=== PATIENT | male | born 1955 | race Caucasian/White ===

== ENCOUNTER 2023-03-14 19:30 | Inpatient (IN) | payer MEDICARE, MEDICAID ==
[2023-03-14] VITALS (9 sets, daily range): BP systolic 123–141; BP diastolic 65–82; PULSE 83–92; RESP 17–26; TEMP 98.3; O2SAT 82–93
[~2023-03-14] VITALS: Ht 182.9 cm; Wt 76.4 kg
[~2023-03-14 19:30] MED LIST: ASPI-10 PO; MULT-342 PO; NITR0.4T51 SL; [UNRECOGNIZED DRUG - OTHER]; aspirin 81mg tab.chew ONE; heparin 10,000 units/1 ML INJ ONE
[2023-03-14] MEDS ORDERED: aspirin 81mg tab.chew PO STA (19:51)
[2023-03-14 19:53] LABS: BASOPHILS % (AUTO) 0.3 % (0-1); EOSINOPHILS % (AUTO) 0 % (0-6); HEMATOCRIT 43.8 % (42.0-52.0); HEMOGLOBIN 14.9 g/dl (14.0-17.9); LYMPHOCYTES # (AUTO) 3.4 X10'3 (1.1-4.8); LYMPHOCYTES % (AUTO) 43.7 % (21-51); MEAN CORPUSCULAR HEMOGLOBIN 32.5 PG (27.0-31.0); MEAN CORPUSCULAR HGB CONC 33.9 g/dL (33.0-36.5); MEAN CORPUSCULAR VOLUME 95.8 FL (78-98); MEAN PLATELET VOLUME 8.5 FL (7.4-10.4); MONOCYTES # (AUTO) 0.8 X10'3 (0-0.9); MONOCYTES % (AUTO) 10.4 % (2-12); NEUTROPHILS # (AUTO) 3.6 X10'3 (1.8-7.7); NEUTROPHILS % (AUTO) 45.6 % (42-75); PLATELET COUNT 217 X10'3 (140-440); RED BLOOD COUNT 4.57 X10'6 (4.70-6.10); RED CELL DISTRIBUTION WIDTH 13.7 % (11.5-14.5); WHITE BLOOD COUNT 7.9 X10'3 (4.5-11.0)
[2023-03-14] MEDS ORDERED: ondansetron/PF 4mg/2ml inj IV STA (19:54)
[2023-03-14] MEDS ORDERED: FLO0.4C PO (19:54)
[2023-03-14] MEDS ORDERED: [UNRECOGNIZED DRUG - CODE] PO (19:54)
[2023-03-14] MEDS ORDERED: heparin, porcine 5000 units/ml vial IV STA (19:54)
[2023-03-14] MEDS ORDERED: ALBU6.7H14 INH (19:54)
[2023-03-14] MEDS ORDERED: morphine 4 MG/ML inj SYRINge IV STA (19:54)
[2023-03-14] MEDS ORDERED: aspirin 81mg tab.chew PO ONE (19:55)
[2023-03-14] MEDS ORDERED: fentaNYL/PF 50MCG/1 ML 2ML syringe ONE (20:07)
[2023-03-14] MEDS ORDERED: LIDOcaine 1% 30ml preserv. free vial ONE (20:07)
[2023-03-14] MEDS ORDERED: iohexol 350MG/ML 100ml bottle IV ONE ×2 (20:07→20:14)
[2023-03-14] MEDS ORDERED: iohexol 350 MG/ML 50ML vial IV ONE (20:07)
[2023-03-14] MEDS ORDERED: midazolam 1 mg/ML 2ml injection ONE (20:07)
--- NOTE | 2023-03-14 20:14 | NUR ---
pt to medical laboratory technician.
[2023-03-14] MEDS ORDERED: heparin 1,000unit/ml 10ml vial 10 ML ONE (20:20)
[2023-03-14] MEDS ORDERED: nitroGLYCERIN-Tridil 50MG/D5W 250 ML IV ONE (20:20)
[2023-03-14] MEDS ORDERED: verapamil 2.5 mg/ml inj IV ONE (20:20)
[2023-03-14 20:26] LABS: ALANINE AMINOTRANSFERASE 23 U/L (12-78); ALBUMIN 3.9 G/DL (3.4-5.0); ALBUMIN/GLOBULIN RATIO 1.1 (1.1-1.5); ALKALINE PHOSPHATASE 55 IU/L (46-116); ANION GAP 10 (8-16); ASPARTATE AMINO TRANSFERASE 13 U/L (10-37); BILIRUBIN,TOTAL 0.9 MG/DL (0.1-1.0); BLOOD UREA NITROGEN 35 MG/DL (7-18); BUN/CREATININE RATIO 35.4 (10.0-20.0); CALCIUM 9.4 MG/DL (8.5-10.1); CHLORIDE 106 MMOL/L (99-107); CREATININE 0.99 MG/DL (0.60-1.10); GLUCOSE 79 MG/DL (70-104); POTASSIUM 3.6 MMOL/L (3.5-5.1); SODIUM 143 MMOL/L (135-145); TOTAL CARBON DIOXIDE 27.4 MMOL/L (24-32); TOTAL PROTEIN 7.5 G/DL (6.4-8.2); eCRCL 77 ML/MIN; eGFR 75 ML/MIN
[2023-03-14 20:33] LABS: PRO BRAIN NATRIURETIC PEPTIDE 206 PG/ML (0-125)
[2023-03-14] MEDS ORDERED: ondansetron/PF 4mg/2ml inj ONE (20:44)
[2023-03-14] MEDS ORDERED: ondansetron/PF 4mg/2ml inj IV PRN (21:25)
[2023-03-14] MEDS ORDERED: nitroGLYCERIN 0.4mg SUBLingual tab SL PRN (21:25)
[2023-03-14] MEDS ORDERED: HYDROcodone/acetaminophen 10/325mg tab PO PRN (21:25)
[2023-03-14] MEDS ORDERED: HYDROcodone/acetaminophen 5mg/325mg tablet PO PRN (21:25)
[2023-03-14] MEDS ORDERED: NITR0.4T51 SL (21:46)
[2023-03-14 22:34] LABS: ABG BASE EXCESS -1.7 mmol/L (-2.0-2.0); ABG HCO3 23.5 mmol/L (22.0-26.0); ABG OXYGEN SATURATION 84.3 % (94-97); ABG PCO2 (T) 41.3 mmHg (35.0-48.0); ABG PH (T) 7.372 (7.340-7.440); ABG PO2 (T) 50.8 mmHg (75.0-100.0); FCOHb 0.4 % (0.0-3.9); FHHb 15.6 % (0.0-5.0); FLOW 15 L/min; FMetHb 0.2 % (0.0-1.5); FO2Hb 83.8 % (94-97); MODE MASK - SIMPLE; PATIENT TEMPERATURE 36.8; TOTAL HEMOGLOBIN 15.9 G/dl (14.0-17.9)
[2023-03-14] MEDS ORDERED: ipratropium/albuterol 3ml nebule NEB PRN (22:55)
[2023-03-15] VITALS (7 sets, daily range): BP systolic 127–145; BP diastolic 88–96; PULSE 71–89; RESP 17–19; TEMP 97.5; O2SAT 88–99
--- NOTE | 2023-03-15 01:00 | NUR ---
S/p cardiac cath through R/radial wrist, hemostatic wrist band removed per protocol with no adverse events, dressing applied to puncture site and will continue to monitor.
[2023-03-15 06:39] LABS: BASOPHILS % (AUTO) 0.1 % (0-1); EOSINOPHILS % (AUTO) 0 % (0-6); HEMATOCRIT 46.1 % (42.0-52.0); HEMOGLOBIN 15.6 g/dl (14.0-17.9); LYMPHOCYTES # (AUTO) 0.7 X10'3 (1.1-4.8); LYMPHOCYTES % (AUTO) 8.1 % (21-51); MEAN CORPUSCULAR HEMOGLOBIN 32.4 PG (27.0-31.0); MEAN CORPUSCULAR HGB CONC 33.7 g/dL (33.0-36.5); MONOCYTES # (AUTO) 0.4 X10'3 (0-0.9); MONOCYTES % (AUTO) 4.8 % (2-12); NEUTROPHILS # (AUTO) 7.2 X10'3 (1.8-7.7); PLATELET COUNT 221 X10'3 (140-440); RED BLOOD COUNT 4.81 X10'6 (4.70-6.10); RED CELL DISTRIBUTION WIDTH 13.7 % (11.5-14.5); WHITE BLOOD COUNT 8.2 X10'3 (4.5-11.0)
[2023-03-15 07:09] LABS: ALANINE AMINOTRANSFERASE 22 U/L (12-78); ALBUMIN 3.8 G/DL (3.4-5.0); ALBUMIN/GLOBULIN RATIO 1.1 (1.1-1.5); ALKALINE PHOSPHATASE 55 IU/L (46-116); ANION GAP 9 (8-16); ASPARTATE AMINO TRANSFERASE 49 U/L (10-37); BILIRUBIN,TOTAL 1.6 MG/DL (0.1-1.0); BLOOD UREA NITROGEN 32 MG/DL (7-18); BUN/CREATININE RATIO 41.6 (10.0-20.0); CALCIUM 9.2 MG/DL (8.5-10.1); CHLORIDE 106 MMOL/L (99-107); CREATININE 0.77 MG/DL (0.60-1.10); GLUCOSE 125 MG/DL (70-104); POTASSIUM 4.1 MMOL/L (3.5-5.1); SODIUM 139 MMOL/L (135-145); TOTAL PROTEIN 7.3 G/DL (6.4-8.2); eCRCL 99 ML/MIN; eGFR > 90 ML/MIN
--- NOTE | 2023-03-15 07:09 | NUR ---
Lab called to say Trop value was . This however was part of a series and was post cardiac cath. charge nurse angel aware. will continue to monitor patient
[2023-03-15 11:26] LABS: CHOL/HDL RATIO 2.5 (0.00-4.99); CHOLESTEROL 161 MG/DL (0-200); HDL CHOLESTEROL 65 MG/DL (35-60); LDL CHOLESTEROL 87 MG/DL (50-100); TRIGLYCERIDES 36 MG/DL (20-135)
[2023-03-15] MEDS ORDERED: ASPI-1265 PO (12:20)
--- NOTE | 2023-03-15 16:27 | NUR ---
patient seen by [facility], following ambulation no SOB or cardiac symptoms. see note. patient reports no pain this am. Is for discharge. All DC instructions given to patient and . patient DC home via private car with in stable condition
== END 2023-03-15 14:09 | disposition home or self-care (01) | DRG 280 ==
LOC: ER 19:31 → PCU 3S 21:02
PROVIDERS: ADMIT Internal Medicine Interventional Cardiology; ATTEND Internal Medicine Interventional Cardiology
PROC: 4A023N7 Measurement of Cardiac Sampling and Pressure, Left Heart, Percutaneous Approach (ICD-10-PCS; principal; 2023-03-14)
PROC: B2111ZZ Fluoroscopy of Multiple Coronary Arteries using Low Osmolar Contrast (ICD-10-PCS; 2023-03-14)
PROC: B2151ZZ Fluoroscopy of Left Heart using Low Osmolar Contrast (ICD-10-PCS; 2023-03-14)
PROC: 5A09357 Assistance with Respiratory Ventilation, Less than 24 Consecutive Hours, Continuous Positive Airway Pressure (ICD-10-PCS; 2023-03-14)
DX: I21.19 ST elevation (STEMI) myocardial infarction involving other coronary artery of inferior wall (principal); J96.01 Acute respiratory failure with hypoxia; I34.0 Nonrheumatic mitral (valve) insufficiency; J32.9 Chronic sinusitis, unspecified; J44.9 Chronic obstructive pulmonary disease, unspecified; R09.02 Hypoxemia; B19.20 Unspecified viral hepatitis C without hepatic coma; R11.0 Nausea; Z90.81 Acquired absence of spleen; Z79.82 Long term (current) use of aspirin; Z79.899 Other long term (current) drug therapy
CPT/HCPCS: 36415; 36600; 71045; 80053; 80061; 82803; 83880; 84484; 85018; 85025; 93005; 93458; 94660; 94760; 94799; 99153; 99285; A4615; A4620; C1751; C1769; C1894; G0378; J1644; J2250; J2270; J2405; J3010; J3490; Q9967

== ENCOUNTER → 2023-11-03 | Outpatient (CLI) | payer MEDICARE, MEDICAID ==
[~2023-11-03] MED LIST changes: +ALBU6.7H14 INH; -ASPI-10 PO; +FLO0.4C PO; +[UNRECOGNIZED DRUG - CODE] PO; -aspirin 81mg tab.chew ONE; -heparin 10,000 units/1 ML INJ ONE
== END | disposition home or self-care (01) ==
LOC: RAD 15:21
PROVIDERS: ATTEND Family Medicine
DX: K40.90 Unilateral inguinal hernia, without obstruction or gangrene, not specified as recurrent (principal)
CPT/HCPCS: 76881